=== PATIENT | female | born 1975 | race Caucasian/White ===

== ENCOUNTER → 2019-09-21 | Outpatient (CLI) | payer MEDICAID, OTHER ==
--- NOTE | 2019-09-22 09:49 | REP ---
MRI RIGHT SHOULDER: TECHNIQUE: Axial T2 fat sat, gradient echo, sagittal oblique T2 fat sat, coronal oblique T1, T2 fat sat. Supraspinatus tendon demonstrates a focal full-thickness partial tear anteriorly with a gap in the tendon approximately 1 cm. Partial tear of the subscapularis tendon. There are moderate hypertrophic degenerative changes of the acromioclavicular joint with mild fluid in the joint. There is type 3 acromion. Biceps tendon is within the bicipital groove. There is ill-defined high signal with thickening of the tendon and mild surrounding fluid. Compatible with tendinitis and possibly a partial tear. There is no Hill-Sachs deformity. The deltoid muscle demonstrates no abnormal signal. There is fraying of the biceps labral complex and diffusely of the superior labrum. Other portions of the labrum appear intact. There are mild subcortical cystic changes in the superolateral humeral head. There is mild fluid throughout the subacromial subdeltoid bursae. There is mild chondromalacia of the glenohumeral joint. IMPRESSION: Full thickness partial tear anterior supraspinatus tendon with a 1 cm gap in the tendon. Partial tear subscapularis tendon. Moderate hypertrophic degenerative change of the acromioclavicular joint. Type 3 acromion. There is tendinitis or a partial tear of the biceps tendon. There is fraying of the biceps labral complex and superior labrum. There is mild fluid in the subacromial subdeltoid bursae. Electronically Signed by Pedro Abreu MD 09/22/2019 09:55 A
== END ==
LOC: M RAD 15:56
PROVIDERS: ATTEND Orthopaedic Surgery Sports Medicine
DX: M25.511 Pain in right shoulder (principal)

== ENCOUNTER → 2019-10-29 | Outpatient (REF) | payer OTHER, MEDICAID ==
[~2019-10-29] MED LIST: ALEV220T22 PO
[2019-10-29 14:06] LABS: BASO # 0.1 10^3/uL (0.0-0.2); BASO % 1.1 % (0.0-1.0); EOS # 0.2 10^3/uL (0.0-0.5); EOS % 2.5 % (0.0-3.0); HEMATOCRIT 45.3 % (36.0-47.0); HEMOGLOBIN 15.3 g/dl (12.0-15.5); LYMPH # 2.2 10^3/uL (1.5-5.0); LYMPH % 26.6 % (24.0-44.0); MEAN CORPUSCULAR HEMOGLOBIN 32.1 pg (27.0-33.0); MEAN CORPUSCULAR HGB CONC 33.8 g/dl (32.0-36.5); MEAN CORPUSCULAR VOLUME 95.2 fl (80.0-96.0); MONO # 0.6 10^3/uL (0.0-0.8); MONO % 6.7 % (0.0-5.0); NEUTROPHILS # 5.3 10^3/uL (1.5-8.5); NEUTROPHILS % 62.7 % (36.0-66.0); PLATELET COUNT, AUTOMATED 384 10^3/uL (150-450); RED BLOOD COUNT 4.76 10^6/uL (4.00-5.40); WHITE BLOOD COUNT 8.4 10^3/uL (4.0-10.0)
[2019-10-29 14:16] LABS: INR 0.94; PROTHROMBIN TIME 12.3 SECONDS (11.8-14.0)
[2019-10-29 14:17] LABS: PARTIAL THROMBOPLASTIN TIME 32.5 SECONDS (25.0-38.4)
[2019-10-29 14:25] LABS: ALBUMIN 4.1 GM/DL (3.2-5.2); ALT/SGPT 31 U/L (12-78); BILIRUBIN,TOTAL 0.7 MG/DL (0.2-1.0); BLOOD UREA NITROGEN 13 MG/DL (7-18); CALCIUM LEVEL 9.5 MG/DL (8.5-10.1); CARBON DIOXIDE LEVEL 25 MEQ/L (21-32); CHLORIDE LEVEL 108 MEQ/L (98-107); CREATININE FOR GFR 0.71 MG/DL (0.55-1.30); GLOMERULAR FILTRATION RATE > 60.0 (>58); GLUCOSE, FASTING 87 MG/DL (70-100); POTASSIUM SERUM 4.2 MEQ/L (3.5-5.1); SODIUM LEVEL 140 MEQ/L (136-145); TOTAL PROTEIN 7.5 GM/DL (6.4-8.2)
== END ==
LOC: M SFHCPLAZ 11:06
PROVIDERS: ATTEND Family Medicine
DX: Z01.818 Encounter for other preprocedural examination (principal)

== ENCOUNTER 2019-10-30 09:25 | Day surgery (SDC) | payer OTHER ==
[~2019-10-30] VITALS: Ht 165.1 cm; Wt 89.8 kg
[~2019-10-30 09:25] MED LIST changes: +ACETAMINOPHEN 1000MG 100ML IV BTL (OFIRMEV) (J0131 PER 10MG) As Ordered ONE; +BUPIVACAINE HCL 0.25% 30 ML VIAL As Ordered ONE; +KETOROLAC 60 MG/2 ML VIAL (J1885) As Ordered ONE; +LIDOCAINE 2% INJ 100 MG/5 ML SDV (FOR ANES.) As Ordered ONE; +LR 1,000 ML IV ONE; +MIDAZOLAM INJ 2 MG/2 ML VIAL (J2250) As Ordered ONE; +ONDANSETRON 4MG/2ML VIAL (J2405) As Ordered ONE; +PROPOFOL 200 MG/20 ML VIAL As Ordered ONE; +ROCURONIUM BROMIDE 50 MG/5 ML VIAL As Ordered ONE; +SUGAMMADEX SODIUM 500 MG/5 ML VIAL (BRIDION) As Ordered ONE; +dexameTHASONE 4 MG/ML 1ML VIAL (J1100) As Ordered ONE; +fentaNYL 100 MCG/2 ML INJECTION (J3010) As Ordered ONE
[2019-10-30] MEDS ORDERED: LIDOCAINE 1% MDV 20ML VIAL ONE (09:26)
[2019-10-30] MEDS ORDERED: ceFAZolin SOD 2 GM in IV 1 EA IV ONE (10:00)
[2019-10-30] MEDS ORDERED: fentaNYL 100 MCG/2 ML INJECTION (J3010) As Ordered ONE (10:41)
[2019-10-30] MEDS ORDERED: MIDAZOLAM INJ 2 MG/2 ML VIAL (J2250) As Ordered ONE (10:41)
[2019-10-30] MEDS ORDERED: EPINEPHrine 1MG/ML INJ 30ML MD-VIAL As Ordered ONE (11:14)
[2019-10-30] MEDS ORDERED: ONDANSETRON 4MG/2ML VIAL (J2405) IV PRN ×2 (14:45→15:00)
[2019-10-30] MEDS ORDERED: ACETAMINOPHEN TAB 650MG DOSE (2X325MG) PO PRN (14:45)
[2019-10-30] MEDS ORDERED: PERCOCET 5MG/325MG TAB PO PRN (14:45)
[2019-10-30] MEDS ORDERED: IBUPROFEN 400 MG TAB PO PRN (14:45)
[2019-10-30] MEDS ORDERED: MORPHINE 4 MG/ML 1ML VIAL/SYRINGE (J2270) IV PRN (14:45)
[2019-10-30] MEDS ORDERED: oxyCODONE 5MG TAB PO PRN (14:45)
[2019-10-30] MEDS ORDERED: fentaNYL 100 MCG/2 ML INJECTION (J3010) IV PRN (14:45)
[2019-10-30] MEDS ORDERED: LR 1,000 ML IV SCH ×2 (14:45)
[2019-10-30] MEDS ORDERED: METOCLOPRAMIDE INJ 10MG/2ML VIAL (J2765) As Ordered ONE (15:43)
[2019-10-30] MEDS ORDERED: METOCLOPRAMIDE INJ 10MG/2ML VIAL (J2765) IV ONE (16:00)
[2019-10-30 17:45] VITALS: BP 127/74
--- NOTE | 2019-10-30 19:59 | RO ---
DATE OF PROCEDURE: 10/30/2019 PREOPERATIVE DIAGNOSIS: Right shoulder impingement syndrome and rotator cuff tears. POSTOPERATIVE DIAGNOSIS: Right shoulder impingement syndrome, anterior border supraspinatus tendon tear, upper third subscapularis tear, instability and longitudinal tearing of the head of the biceps. PLANNED PROCEDURE: Right shoulder arthroscopy intra-articular surgery. PROCEDURE PERFORMED: Right shoulder arthroscopy, debridement, subacromial decompression, distal clavicle excision, biceps tenodesis, repair supraspinatus tendon and repair subscapularis tendon as well as limited debridement. OPERATIVE PREAMBLE: This 43-year-old female having painful difficulties with her right shoulder. She failed nonoperative management. We talked about the pros, cons, risks, benefits of going ahead with right shoulder arthroscopy and intra-articular surgery. I reiterated these risks in preoperative holding, marked the right upper extremity as she wished to proceed with the surgery. DESCRIPTION OF PROCEDURE: Patient was brought to the operating theater. They administered preoperative antibiotics. They were placed supine on the beach chair with the Spider Limb positioner to the right side. All bony prominences were padded. SCDs were used on the down leg. General anesthesia was induced. The patient was set up at a 45 degrees angle. The limb was prepped and draped in the usual sterile fashion allowing at least three minutes for the preparatory solution to dry. Preoperative time-out was performed confirming the site, the patient, and the surgery. Arthroscope was introduced in the posterior aspect of the shoulder in the standard fashion. Full extent intra-articular aspect of the shoulder was examined. Glenoid and humeral head cartilage was normal. Biceps was frayed longitudinally as well as being unstable medially. There is an upper third border subscapularis longitudinal tear. There is undersurface rotator cuff obvious tear and fraying. There is synovitis posteriorly. There is mild glenoid labrum fraying. Rotator interval appeared normal. Anterior portal was then created through an inside-out spinal needle localization technique through the rotator interval just posterior to the biceps tendon. Cannula was introduced. TigerLink suture was then used in locking loop configuration in the biceps tendon. Biceps was then cut at the base using the ablator. The stitch was externalized and cannula replaced. I then used half weight #2 FiberWire again in a locking loop configuration, passed two stitches into the upper border of the subscapularis tendon. I debrided the base of the proposed repair site of the subscapularis tendon. I tapped for a Arthrex SwiveLock anchor. I passed the four limbs of the sutures through the anchor and then I secured this down in a standard fashion to the upper border of the subscapularis fixing that tendon tear. Scope was then placed in subacromial space. Full debridement was performed. There was a large anterolateral spur on the undersurface of the acromion. This was debrided down to flat bone using combination of shaver and bur. I then dissected towards the distal end of the clavicle. I formed a distal clavicle excision of greater than 1 cm in width. The scope was placed anteriorly as well and arthroscopy pictures taken throughout the case to confirm the full extent of the distal clavicle excision. Lateral portals created through again inside out spinal needle localization and cannula placed the approximate location of the anterior border supraspinatus tendon tear. This was identified. The tear was debrided. There was a 1 x 1 cm tear. This was crescent shaped. She had good mobility. Tuberosity was prepared using a bur down to the bleeding bone. Biceps sutures then brought out anteriorly. Using 2.9 mm Arthrex PushLock anchor this was then secured in the upper border of the groove taking the biceps off tension. I then placed again an Arthrex 5.5 mm SwiveLock at the edge of the articular surface. FiberTapes were preloaded into this. I then passed the four limbs of the FiberTapes in inverted mattress fashion through the supraspinatus tendon. This was then brought down laterally and again soft tissue cleared away laterally and a punch used laterally in order to do a knotless lateral row. Sutures were then taken out through the lateral cannula, passed into a 5.5 mm Arthrex SwiveLock anchor and then secured down to perform the lateral row repair. Normal and anatomic and watertight. Sutures were cut short. Final arthroscopy pictures were taken. The shoulder was thoroughly irrigated. Scope was withdrawn. The wound was cleaned with wet-dry dressing. Portal sites were closed with interrupted #3-0 Monocryl suture. Steri-Strips were applied. Adaptic 4 x 8 gauze, ABD dressing, cloth tape was then applied as well as a sling to the right upper extremity. The patient was set back awoken from general anesthetic, transferred off the operating table and taken to postanesthetic care unit in stable condition. All sponge, needle, and instrument counts were correct. No complications. Estimated blood loss 150 mL. PLAN: The patient is to start gentle pendulum exercises as well hand, wrist and elbow exercises but avoid external rotation and forward elevation. I would like to see her back in 2 weeks time. They can change the dressing themselves in two days or wait for followup with myself in two weeks time. Discharged home according to day surgery criteria. The patient was asking for ibuprofen 800 mg tablets. He can get this [id number] and take two every 3 hours as she has definitely made it very clear she does not want a narcotic or opioid type medication.
== END 2019-10-30 17:52 | disposition home or self-care (01) ==
LOC: M SDC 09:25
PROVIDERS: ATTEND Orthopaedic Surgery Sports Medicine
DX: M75.41 Impingement syndrome of right shoulder (principal); M75.101 Unspecified rotator cuff tear or rupture of right shoulder, not specified as traumatic; M75.21 Bicipital tendinitis, right shoulder; K21.9 Gastro-esophageal reflux disease without esophagitis; Z88.1 Allergy status to other antibiotic agents; Z91.040 Latex allergy status; J44.9 Chronic obstructive pulmonary disease, unspecified; F17.218 Nicotine dependence, cigarettes, with other nicotine-induced disorders
CPT/HCPCS: 29823; 29824; 29826; 29827; 29828; 64415; 81025; C1713; J0131; J0690; J1100; J1885; J2250; J2405; J2765

== ENCOUNTER → 2020-11-08 | Outpatient (REF) | payer OTHER, MEDICAID ==
[~2020-11-08] MED LIST changes: -ACETAMINOPHEN 1000MG 100ML IV BTL (OFIRMEV) (J0131 PER 10MG) As Ordered ONE; -BUPIVACAINE HCL 0.25% 30 ML VIAL As Ordered ONE; -KETOROLAC 60 MG/2 ML VIAL (J1885) As Ordered ONE; -LIDOCAINE 2% INJ 100 MG/5 ML SDV (FOR ANES.) As Ordered ONE; -LR 1,000 ML IV ONE; -MIDAZOLAM INJ 2 MG/2 ML VIAL (J2250) As Ordered ONE; -ONDANSETRON 4MG/2ML VIAL (J2405) As Ordered ONE; -PROPOFOL 200 MG/20 ML VIAL As Ordered ONE; -ROCURONIUM BROMIDE 50 MG/5 ML VIAL As Ordered ONE; -SUGAMMADEX SODIUM 500 MG/5 ML VIAL (BRIDION) As Ordered ONE; -dexameTHASONE 4 MG/ML 1ML VIAL (J1100) As Ordered ONE; -fentaNYL 100 MCG/2 ML INJECTION (J3010) As Ordered ONE
== END ==
LOC: M SFHCADAM 15:36
PROVIDERS: ATTEND Physician Assistant
DX: R10.2 Pelvic and perineal pain (principal); Z12.4 Encounter for screening for malignant neoplasm of cervix

== ENCOUNTER → 2020-11-08 | Outpatient (REF) | payer OTHER, MEDICAID | LOC: M SFHCADAM 16:29 | PROVIDERS: ATTEND Physician Assistant | DX: R10.2 Pelvic and perineal pain (principal) ==

== ENCOUNTER → 2021-01-10 | Outpatient (CLI) | payer OTHER, MEDICAID ==
--- NOTE | 2021-01-10 15:00 | REP ---
INDICATION: F/U POST OP/PAIN RIGHT SHOULDER. COMPARISON: None. TECHNIQUE: Internal rotation, external rotation, axillary and Y-view of the right shoulder. FINDINGS: Mild cortical irregularity at the acromioclavicular joint. Axillary view demonstrates subtle irregularity to the humeral head with mild subchondral cystic changes. No acute fracture or dislocation. Subacromial space is normal. No obvious periarticular calcifications or loose bodies identified. IMPRESSION: Mild/early moderate degenerative changes. <Electronically signed by Louis Ramírez > 01/10/21 [id number]
== END ==
LOC: M SOG 13:52
PROVIDERS: ATTEND Orthopaedic Surgery Sports Medicine
DX: M19.011 Primary osteoarthritis, right shoulder (principal); M25.511 Pain in right shoulder; Z47.89 Encounter for other orthopedic aftercare

== ENCOUNTER → 2021-01-23 | Outpatient (REF) | payer OTHER, MEDICAID | LOC: M SFHCWAGY 13:40 | PROVIDERS: ATTEND Nurse Practitioner Women's Health | DX: R87.612 Low grade squamous intraepithelial lesion on cytologic smear of cervix (LGSIL) (principal) ==

== ENCOUNTER → 2021-02-08 | Outpatient (CLI) | payer OTHER ==
--- NOTE | 2021-02-08 12:34 | REP ---
INDICATION: RC REPAIR RIGHT SHOULDER. COMPARISON: 09/21/2019. TECHNIQUE: Coronal oblique T1, T2 fat sat, sagittal oblique T2 fat sat, axial T2 fat sat, gradient echo. FINDINGS: Rotator cuff: There is evidence of prior repair of the supraspinatus and subscapularis tendon tears previously identified. There are findings consistent with a partial undersurface tear of the posterior aspect of the supraspinatus tendon. Acromioclavicular joint: Mild hypertrophic changes are seen at the acromioclavicular joint. Acromion: Type 3 Biceps Tendon: In bicipital groove, no tenosynovitis. Hill Sach's deformity: None. Deltoid muscle: No abnormal signal. Labrum: Superior labrum is somewhat truncated. Labrum is not optimally evaluated due to patient motion. No definite new labral tear is seen. Cartilage: No defects. Bone marrow: A couple of tiny subcentimeter subcortical cysts are seen in the superolateral humeral head. No bone marrow edema is seen. Joint fluid: There is a small joint effusion. Mild scattered fluid is seen in the subacromial/subdeltoid bursae, with a more moderate amount of fluid in the posterior subacromial region tracking medially along the superior aspect of the infraspinatus muscle. IMPRESSION: Partial undersurface tear supraspinatus tendon posterior aspect. No other evidence of rotator cuff tear. Limited evaluation of the labrum due to patient motion. Superior labrum is somewhat truncated, but no definite new labral tear is seen. There is mild scattered fluid in the subacromial/subdeltoid bursae. There is a more moderate amount of fluid in the posterior subacromial region tracking medially along the superior aspect of the infraspinatus muscle. <Electronically signed by Pedro Abreu > 02/08/21 1427
== END ==
LOC: M RAD 09:15
PROVIDERS: ATTEND Orthopaedic Surgery Sports Medicine
DX: Z47.89 Encounter for other orthopedic aftercare (principal)

== ENCOUNTER → 2021-02-15 | Outpatient (CLI) | payer OTHER ==
--- NOTE | 2021-02-15 11:54 | REP ---
INDICATION: N83.202 LT OVARIAN CYST COMPARISON: 08/31/2005 TECHNIQUE: Transabdominal pelvic ultrasound followed by transvaginal examination for better evaluation of the endometrium and adnexa with color Doppler evaluation of the ovaries. FINDINGS: Bladder is unremarkable and measures 11.0 x 8.9 x 10.0 cm. Heterogeneous anteverted uterus measures 10.4 x 5.9 x 7.3 cm. The endometrial complex is heterogeneous and thickened to 18 mm. 8 mm and 11 mm hypoechoic areas in the left myometrium suggests small fibroids. Bilateral ovaries are normal in vascularity without evidence for torsion. Right ovary measures 3.6 x 2.5 x 2.8 cm and includes 1.4 cm dominant follicle; R I = 0.60. Left ovary measures 2.6 x 1.6 x 1.4 cm and includes 1.7 cm dominant follicle; R I = 0.65. Trace pelvic free fluid is nonspecific and likely physiologic. IMPRESSION: Thickened endometrial complex and bilateral dominant follicles may be related to menstrual cycle. Correlation with physical examination and follow-up examination in 4-6 weeks may be considered if the patient remains symptomatic. <Electronically signed by Louis Ramírez > 02/15/21 [id number]
== END ==
LOC: M WHC 10:05
PROVIDERS: ATTEND Nurse Practitioner Women's Health
DX: N83.202 Unspecified ovarian cyst, left side (principal)

== ENCOUNTER → 2021-03-06 | Outpatient (REF) | payer OTHER, MEDICAID ==
[2021-03-06 10:36] LABS: HEMATOCRIT 44.4 % (36.0-47.0); MEAN CORPUSCULAR HEMOGLOBIN 31.7 pg (27.0-33.0); MEAN CORPUSCULAR HGB CONC 33.8 g/dl (32.0-36.5); MEAN CORPUSCULAR VOLUME 93.9 fl (80.0-96.0); PLATELET COUNT, AUTOMATED 368 10^3/uL (150-450); RED BLOOD COUNT 4.73 10^6/uL (4.00-5.40); WHITE BLOOD COUNT 8.2 10^3/uL (4.0-10.0)
[2021-03-06 11:19] LABS: FREE T4 1.14 NG/DL (0.76-1.46); THYROID STIMULATING HORMONE 0.887 uIU/ML (0.358-3.740)
== END ==
LOC: M PLALAB 08:55
PROVIDERS: ATTEND Obstetrics & Gynecology
DX: N92.0 Excessive and frequent menstruation with regular cycle (principal)

== ENCOUNTER → 2021-07-12 | Outpatient (CLI) | payer OTHER ==
--- NOTE | 2021-07-13 08:40 | ECGEPIP ---
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
== END ==
LOC: M EKG 12:49
PROVIDERS: ATTEND Anesthesiology
DX: Z01.818 Encounter for other preprocedural examination (principal)

== ENCOUNTER → 2021-07-19 | Outpatient (CLI) | payer OTHER, MEDICAID | LOC: M LABSMTC 09:30 | PROVIDERS: ATTEND Anesthesiology | DX: Z01.812 Encounter for preprocedural laboratory examination (principal); Z20.822 Contact with and (suspected) exposure to COVID-19 ==

== ENCOUNTER 2021-07-24 09:43 | Day surgery (SDC) | payer OTHER ==
[~2021-07-24] VITALS: Ht 162.6 cm; Wt 94.3 kg
[~2021-07-24 09:43] MED LIST changes: +LR 1,000 ML IV ONE; +ceFAZolin SOD 1 GM in D5W MINI-BAG PLUS 50 ML IV ONE
[2021-07-24 10:37] LABS: HEMATOCRIT 42.9 % (36.0-47.0); HEMOGLOBIN 14.5 g/dl (12.0-15.5); MEAN CORPUSCULAR HEMOGLOBIN 31.9 pg (27.0-33.0); MEAN CORPUSCULAR HGB CONC 33.8 g/dl (32.0-36.5); MEAN CORPUSCULAR VOLUME 94.5 fl (80.0-96.0); PLATELET COUNT, AUTOMATED 382 10^3/uL (150-450); RED BLOOD COUNT 4.54 10^6/uL (4.00-5.40); WHITE BLOOD COUNT 8.9 10^3/uL (4.0-10.0)
[2021-07-24 11:08] LABS: HCG, SERUM QUALITATIVE NEGATIVE (NEGATIVE)
[2021-07-24] MEDS ORDERED: dexameTHASONE 4 MG/ML 1ML VIAL (J1100 PER 1MG) As Ordered ONE (13:00)
[2021-07-24] MEDS ORDERED: ROCURONIUM BROMIDE 50 MG/5 ML VIAL As Ordered ONE ×3 (13:00→17:27)
[2021-07-24] MEDS ORDERED: ONDANSETRON 4MG/2ML VIAL As Ordered ONE (13:00)
[2021-07-24] MEDS ORDERED: SUGAMMADEX SODIUM 500 MG/5 ML VIAL (BRIDION) As Ordered ONE (13:00)
[2021-07-24] MEDS ORDERED: fentaNYL 100 MCG/2 ML INJECTION (J3010) As Ordered ONE (13:00)
[2021-07-24] MEDS ORDERED: propofoL 200 MG/20 ML VIAL As Ordered ONE (13:00)
[2021-07-24] MEDS ORDERED: LIDOCAINE 2% 100MG/5ML SDV (FOR ANES.) As Ordered ONE (13:00)
[2021-07-24] MEDS ORDERED: MIDAZOLAM INJ 2MG/2ML VIAL (J2250 PER 1MG) As Ordered ONE (13:00)
[2021-07-24] MEDS ORDERED: ACETAMINOPHEN *IV* 1,000 MG IV ONE ×2 (13:00)
[2021-07-24] MEDS ORDERED: METOCLOPRAMIDE INJ 10MG/2ML VIAL (J2765 PER 1) As Ordered ONE (13:00)
[2021-07-24] MEDS ORDERED: BUPIVACAINE HCL 0.25% 30ML VIAL As Ordered ONE (13:44)
[2021-07-24] MEDS ORDERED: METHYLENE BLUE 0.5% (5MG/ML) 10 ML AMP (PROVAYBLUE) As Ordered ONE (13:44)
[2021-07-24] MEDS ORDERED: HYDROmorphone HCL 2 MG/ML 1ML VIAL As Ordered ONE ×2 (14:21→19:18)
[2021-07-24] MEDS ORDERED: PERCOCET 5MG/325MG TAB PO PRN ×2 (19:25)
[2021-07-24] MEDS ORDERED: ONDANSETRON 4MG/2ML VIAL IV PRN ×2 (19:25→20:00)
[2021-07-24] MEDS ORDERED: PROMETHAZINE INJ 25 MG/ML VIAL (J2550) IV PRN (19:25)
--- NOTE | 2021-07-24 19:37 | ROOPDOC ---
[facility] Report Of Operation Report of Operation DATE OF PROCEDURE: 07/24/2021 PREPROCEDURE DIAGNOSES: Abnormal uterine bleeding, chronic pelvic pain. POSTPROCEDURE DIAGNOSES: Same. PROCEDURE: Robotic-assisted total laparoscopic hysterectomy, bilateral salpingo- oophorectomy, extensive adhesiolysis, cystoscopy SURGEON: Alton Floyd D.O. FACOG LIBRARY CIRCULATION CLERK: None ANESTHESIA: General endotracheal. ESTIMATED BLOOD LOSS: Approximately 100 mL. FLUIDS REPLACED: 1400 mL LR URINE OUTPUT: 400 mL COMPLICATIONS: None. FINDINGS: Normal-appearing ovaries bilaterally, although both ovaries were stuck to the pelvic sidewall with adhesions. Extensive pelvic adhesive disease. Sigmoid colon and rectum were adherent to the uterus which required extensive/meticulous adhesiolysis. Bladder adhesions to the anterior lower uterine segment. Uterus was approximately 10 centimeters in greatest dimension. Cystoscopy: Bilateral ureteral orifice efflux, no bladder injury/suture material. PREOPERATIVE ANTIBIOTIC PROPHYLAXIS: Ancef 2 g IV 1. SPECIMEN(S): Uterus w/ cervix, bilateral fallopian tubes and ovaries DESCRIPTION OF PROCEDURE: The patient was counseled, consented on the respective benefits, indications, alternatives of procedure. Informed consent was obtained. She was taken to the operating room with an IV running. She was placed on the operating table in do rsal supine position. Gen. anesthesia was administered and the airway was secured without any difficulty. She was placed in the low lithotomy position. . She was prepared and draped in the normal sterile fashion. A time out was performed per protocol. A Rahman catheter was placed under sterile conditions. A sterile speculum was placed resulting in good visualization of the cervix. A single-tooth tenaculum was used to grasp the anterior lip cervix. The cervix was sequentially dilated with Jamari dilators. A V-Care uterine manipulator was placed without any difficulty. The single-tooth tenaculum was removed, as well as the speculum. A sterile glove switch was performed. Attention was turned to the abdomen. A 2mm incision was made in the umbilicus, and through this incision a Veress needle was inserted into the intraperitoneal cavity. Intraperitoneal placement was confirmed with ease of flow of normal saline, positive drop test, no return on aspiration, and an opening pressure of less than 10 mmHg upon initial insufflation. The abdomen was insufflated with 2 L of gas. The Veress needle was removed. A supraumbilical 8 mm incision was made. Through this incision, the robotic trochar/cannula was inserted into the intraperitoneal cavity under direct visualization. No incidental bleeding nor injury was noted. Patient was placed in 30 Trendelenburg. The right and left trocars/cannulas were placed on both the right and left side through 8 mm incisions, guided by laparoscopic visualization. No incidental bleeding nor injury was noted. The robot was docked in typical fashion. The instruments were inserted, guided by laparoscopic visualization. My attention was turned to the robotic console. The left IP ligament was identified and elevated. The left ureter was identified after extensive adhesiolysis and noted to be well away from the planned surgical pedicle. The left IP ligament was sequentially clamped, coagulated and transected with the vessel sealer device. The left ovary with an attached cyst on the cortex was noted in both ovary and cyst were densely adherent to the left pelvic sidewall. This required an extensive adhesiolysis. The amputated right ovary and fallopian tube were put into the posterior cul-de-sac. In similar fashion, the right IP ligament was identified and elevated. The right ureter was identified and noted to be well away from the planned surgical pedicle after adhesiolysis. The right IP ligament was sequentially clamped, coagulated and transected with the vessel sealer device. Amputated right ovary and fallopian tube were put into the posterior cul-de-sac. Adhesiolysis was performed with monopolar coral without any energy applied near the bowel. Adhesiolysis near the bowel was all sharp dissection. The sigmoid colon and the rectum were freed from the uterus. The sigmoid colon and rectum were examined closely and the tissue appeared free from injury or bleeding. The right utero-ovarian ligament and right round ligament were sequentially clamped, coagulated and transected with the vessel sealer device. The vesicouterine peritoneum was dissected with the vessel sealer device to create the bladder flap, thus mobilizing the lower uterine segment and cervix off of the bladder. The right uterine vasculature was sequentially clamped, coagulated and transected above and medial to the rim of the colpotomy cup. The left utero-ovarian ligament and left round ligament were sequentially clamped, coagulated and transected with the vessel sealer device. The remainder of the bladder flap was dissected using the vessel sealer device and blunt dissection; extensive adhesiolysis from her previous 3 C-sections was performed. No electric energy was performed near/on the bladder; dissection was with monopolar coral without any energy. The left uterine vasculature was sequentially clamped, coagulated and transected above and medial to the rim of the colpotomy cup. The outline of the entire V- care colpotomy cup was able to be delineated. Excellent blanching of the uterus was noted. A circumferential colpotomy was performed using the da Rubens monopolar coral, following the contour of the cup. The amputated cervix and uterus were brought through the colpotomy into and out of the vagina, intact as one unit. All specimens (uterus cervix fallopian tubes and ovaries) were removed from the vagina and sent to pathology for permanent section. A laparotomy sponge was placed in a s terile glove and then placed into the vagina to maintain pneumoperitoneum. The colpotomy was closed with the V-lock barbed suture in running fashion, thus creating the vaginal cuff. Excellent hemostasis was noted throughout the steps above. Vadim was placed over the vaginal cuff to ensure hemostasis. The instruments were removed from the abdomen and the robot was un-docked. The gas was released from the abdomen and the patient was taken out of Trendelenburg. I re-scrubbed, and attention was turned to the pelvis. The Rahman catheter was removed. The cystoscope was placed transurethrally into the bladder and normal saline was instilled. No bladder injury/suture material was noted. IV methylene blue had been administered by anesthesia and bilateral UO efflux was confirmed. The fluid was drained out of the bladder through the cystoscope device, then the cystoscope was removed. The vagina was copiously irrigated. A sterile digital vaginal exam revealed no significant bleeding and an intact vaginal cuff. A sterile glove switch was performed. The da Rubens cannulas were removed. The skin incisions were closed with 4-0 Monocryl in subcuticular fashion. Sponge, needle and instrument counts were correct per protocol. The patient tolerated the entire procedure very well. She was transferred to the PACU in good and stable condition. DO TYRONE Sparrow JONATHAN R. DO Jul 24, 2021 19:37
[2021-07-24] MEDS ORDERED: HYDROMORPHONE HCL 0.5 MG/ 0.5 ML SYRINGE (J1170 PER 1) IV PRN (20:00)
[2021-07-24] MEDS ORDERED: LR 1,000 ML IV SCH (20:00)
[2021-07-24] MEDS ORDERED: oxyCODONE 5MG TAB PO PRN (20:00)
[2021-07-24] MEDS ORDERED: METOCLOPRAMIDE INJ 10MG/2ML VIAL (J2765 PER 1) IV PRN (20:00)
[2021-07-24] MEDS ORDERED: fentaNYL 100 MCG/2 ML INJECTION (J3010) IV PRN (20:00)
[2021-07-24 20:30] VITALS: BP 119/73
[2021-07-24 20:35] VITALS: BP 119/73
[2021-07-24 21:00] VITALS: BP 107/64
[2021-07-24] MEDS: DOCUSATE SODIUM 100MG CAPSULE PO SCH (21:39)
[2021-07-24] MEDS: LR 1,000 ML IV SCH (21:39)
[2021-07-24 22:00] VITALS: BP 109/65
[2021-07-24] MEDS ORDERED: ceFAZolin SOD 2 GM in IV 1 EA IV ONE (22:00)
[2021-07-24 23:00] VITALS: BP 120/70
[2021-07-25] MEDS: KETOROLAC 30 MG/ML 1ML VIAL IV SCH ×2 (00:11→05:49)
[2021-07-25] MEDS: LR 1,000 ML IV SCH (00:55)
[2021-07-25 06:00] VITALS: BP 118/59
[2021-07-25 06:27] LABS: BASO # 0.1 10^3/uL (0.0-0.2); BASO % 0.6 % (0.0-1.0); EOS % 0.3 % (0.0-3.0); HEMATOCRIT 35.6 % (36.0-47.0); LYMPH # 2.1 10^3/uL (1.5-5.0); MEAN CORPUSCULAR HEMOGLOBIN 32.1 pg (27.0-33.0); MEAN CORPUSCULAR VOLUME 94.4 fl (80.0-96.0); MONO # 0.9 10^3/uL (0.0-0.8); MONO % 6.8 % (2.0-8.0); NEUTROPHILS # 9.4 10^3/uL (1.5-8.5); PLATELET COUNT, AUTOMATED 330 10^3/uL (150-450); RED BLOOD COUNT 3.77 10^6/uL (4.00-5.40); WHITE BLOOD COUNT 12.6 10^3/uL (4.0-10.0)
[2021-07-25 06:28] LABS: HEMOGLOBIN 12.1 g/dl (12.0-15.5)
[2021-07-25] MEDS: DOCUSATE SODIUM 100MG CAPSULE PO SCH (07:44)
[2021-07-25] MEDS ORDERED: IBUP80TA PO (09:43)
[2021-07-25] MEDS ORDERED: PERCOCET PO (09:43)
[2021-07-25] MEDS ORDERED: DOCU100C16 PO (09:43)
[2021-07-25] MEDS ORDERED: IBUPROFEN 800 MG TAB PO SCH (20:00)
== END 2021-07-25 10:20 | disposition home or self-care (01) ==
LOC: M SDC 09:43 → M MS5PR 20:30 → M SDC 07-25 10:20
PROVIDERS: ATTEND Obstetrics & Gynecology
DX: N93.9 Abnormal uterine and vaginal bleeding, unspecified (principal); R10.2 Pelvic and perineal pain; N80.0 Endometriosis of uterus; N73.6 Female pelvic peritoneal adhesions (postinfective); Z88.1 Allergy status to other antibiotic agents; Z91.040 Latex allergy status
CPT/HCPCS: 36415; 49329; 58571; 84703; 85025; 85027; 86850; 86900; 86901; 88307; 96361; 96365; 96375; 96376; J0131; J0690; J1100; J1170; J1885; J2250; J2405; J2765; J3010; Q9968; S2900

== ENCOUNTER 2024-05-27 06:05 | Day surgery (SDC) | payer OTHER ==
[~2024-05-27] VITALS: Ht 162.6 cm; Wt 104.8 kg
[~2024-05-27 06:05] MED LIST changes: +DOCU100C16 PO; +IBUP80TA PO; -LR 1,000 ML IV ONE; +PERCOCET PO; -ceFAZolin SOD 1 GM in D5W MINI-BAG PLUS 50 ML IV ONE
[2024-05-27] MEDS ORDERED: LR 1,000 ML IV SCH (06:35)
[2024-05-27 06:55] LABS: HEMATOCRIT 39.2 % (36.0-47.0); HEMOGLOBIN 13.2 g/dl (12.0-15.5); MEAN CORPUSCULAR HGB CONC 33.7 g/dl (32.0-36.5); PLATELET COUNT, AUTOMATED 373 10^3/uL (150-450); RED BLOOD COUNT 4.26 10^6/uL (4.00-5.40); WHITE BLOOD COUNT 5.9 10^3/uL (4.0-10.0)
[2024-05-27] MEDS ORDERED: LIDOCAINE 2% 100MG/5ML SDV (FOR ANES.) As Ordered ONE (06:58)
[2024-05-27] MEDS ORDERED: propofoL 200 MG/20 ML VIAL As Ordered ONE (06:58)
[2024-05-27] MEDS ORDERED: ONDANSETRON 4MG 2ML VIAL As Ordered ONE (06:59)
[2024-05-27] MEDS ORDERED: MIDAZOLAM INJ 2MG/2ML VIAL As Ordered ONE (06:59)
[2024-05-27] MEDS ORDERED: fentaNYL 100 MCG/2 ML INJECTION As Ordered ONE (06:59)
[2024-05-27 07:19] LABS: BLOOD UREA NITROGEN 14 MG/DL (9-23); CALCIUM LEVEL 8.8 MG/DL (8.5-10.1); CARBON DIOXIDE LEVEL 28 MMOL/L (20-31); CHLORIDE LEVEL 112 MMOL/L (98-107); CREATININE FOR GFR 0.61 MG/DL (0.55-1.30); GLOMERULAR FILTRATION RATE > 60.0 (>51); GLUCOSE, FASTING 95 MG/DL (60-100); POTASSIUM SERUM 4.1 MMOL/L (3.5-5.1); SODIUM LEVEL 144 MMOL/L (136-145)
[2024-05-27] MEDS: ceFAZolin SOD 2 GM in IV 1 EA IV ONE (07:30)
[2024-05-27] MEDS: LIDOCAINE 1% SDV 30ML VIAL As Ordered ONE (07:32)
[2024-05-27] MEDS ORDERED: ACETAMINOPHEN 1000MG 100ML IV BAG As Ordered ONE (07:43)
[2024-05-27] MEDS ORDERED: ONDANSETRON 4MG 2ML VIAL IV PRN (08:55)
[2024-05-27] MEDS ORDERED: oxyCODONE 5MG TAB PO PRN (08:55)
[2024-05-27] MEDS ORDERED: fentaNYL 100 MCG/2 ML INJECTION IV PRN (08:55)
[2024-05-27 09:42] VITALS: BP 144/93; TEMP 97; O2SAT 97
== END 2024-05-27 10:14 | disposition home or self-care (01) ==
LOC: M SDC 06:05
PROVIDERS: ATTEND Podiatrist Foot & Ankle Surgery
DX: M21.612 Bunion of left foot (principal); M20.12 Hallux valgus (acquired), left foot; M77.42 Metatarsalgia, left foot; K57.92 Diverticulitis of intestine, part unspecified, without perforation or abscess without bleeding; J44.9 Chronic obstructive pulmonary disease, unspecified; Z88.1 Allergy status to other antibiotic agents; Z91.040 Latex allergy status; F17.218 Nicotine dependence, cigarettes, with other nicotine-induced disorders
CPT/HCPCS: 28299; 28308; 36415; 76000; 80048; 85027; C1713; J0131; J0665; J0690; J1100; J2250; J2405; J3010

== ENCOUNTER 2024-08-11 11:17 | Emergency (ER) | payer OTHER ==
[~2024-08-11] VITALS: Ht 162.6 cm; Wt 106.5 kg
[2024-08-11] MEDS: GABAPENTIN 100 MG CAP PO ONE (16:24)
[2024-08-11] MEDS: methocarbamoL 750 MG TAB PO ONE (16:24)
[2024-08-11 16:28] VITALS: BP 129/90; TEMP 98; O2SAT 98
[2024-08-11] MEDS: KETOROLAC 60MG 2ML VIAL IM ONE (17:41)
== END 2024-08-11 18:25 | disposition home or self-care (01) ==
LOC: M ED 11:17
DX: M54.41 Lumbago with sciatica, right side (principal); J44.9 Chronic obstructive pulmonary disease, unspecified; K57.90 Diverticulosis of intestine, part unspecified, without perforation or abscess without bleeding; Z88.1 Allergy status to other antibiotic agents; Z91.040 Latex allergy status
CPT/HCPCS: 96372; 99284; J1885